=== PATIENT | male | born 1985 | race African-American/Black ===

== ENCOUNTER 2017-09-20 15:14 | Emergency (ER) | payer BC, SELFPAY ==
[2017-09-20 16:12] LABS: #Eosinphils 0.5 thou/uL (0.0-0.7); #Lymphocytes 2.2 thou/uL (1.20-3.40); #Neutrophils 7.9 thou/uL (1.40-6.50); %Basophils 0.3 % (0.0-1.0); %Eosinophils 4.3 % (0.0-10.0); %Monocytes 8.3 % (0.0-10.0); Mean Corpuscular HGB CONC 33.1 g/dL (32.0-36.0); Mean Corpuscular Hemoglobin 28.7 pg (27.0-31.0); Mean Corpuscular Volume 86.5 fl (80.0-94.0); Mean Platelet Volume 9.5 fL (7.4-10.4); Platelet Count 192 thou/uL (130-400); RBC Distribution Width 12.5 % (11.5-14.5); Red Blood Cell (RBC) Count 5.25 mill/uL (4.70-6.10); White Blood Cell (WBC) Count 11.7 thou/uL (4.8-10.8)
[2017-09-20] MEDS ORDERED: Lidocaine 1% w/Epinephrine 1:100K 20 ML VIAL ONE (16:29)
[2017-09-20] MEDS ORDERED: Morphine 4 MG/ML VIAL ONE (16:29)
[2017-09-20] MEDS ORDERED: Ketorolac Tromethamine 30 MG/ML VIAL ONE (16:29)
[2017-09-20] MEDS ORDERED: Clindamycin/D5W 900 mg/50 ml Premix Bag ONE (16:29)
[2017-09-20 16:35] LABS: ALT (SGPT) 48 U/L (8-55); AST (SGOT) 22 U/L (5-34); Albumin 4.4 g/dL (3.5-5.0); Alkaline Phosphatase 91 U/L (40-150); Anion Gap 14 mmol/L (10-20); BUN (Urea Nitrogen) 10 mg/dL (8.9-20.6); Bilirubin, Total 0.7 mg/dL (0.2-1.2); Calc. Creatinine Clearance 0 mL/min (70-130); Calcium 9.7 mg/dL (7.8-10.44); Carbon Dioxide 24 mmol/L (22-29); Chloride 103 mmol/L (98-107); Estimated GFR-MDRD Greater than 90; Globulin 3.7 g/dL (2.4-3.5); Glucose 151 mg/dL (70-105); Potassium 3.7 mmol/L (3.5-5.1); Protein, Total 8.1 g/dL (6.0-8.3); Sodium 137 mmol/L (136-145)
== END 2017-09-20 17:58 | disposition home or self-care (01) ==
LOC: ERS 15:14
DX: L02.411 Cutaneous abscess of right axilla (principal); J45.909 Unspecified asthma, uncomplicated; F17.210 Nicotine dependence, cigarettes, uncomplicated; Z71.6 Tobacco abuse counseling
CPT/HCPCS: 10060; 36415; 80053; 83605; 85025; 87040; 96365; 96375; 99406; J1885; J2001; J2270; J3490

== ENCOUNTER 2018-09-03 16:17 | Emergency (ER) | payer SELFPAY ==
--- NOTE | 2018-09-03 17:44 | RAD ---
XR Chest Pa Lat STANDARD HISTORY: Cough COMPARISON: 06/30/2014 FINDINGS: The heart size is normal. No focal areas of consolidation, pneumothoraces, shayne pulmonary edema or pleural effusions are seen. No acute osseous abnormalities are identified. IMPRESSION: No acute process.
== END 2018-09-03 18:02 | disposition home or self-care (01) ==
LOC: ERS 16:17
DX: R05 Cough (principal); J45.909 Unspecified asthma, uncomplicated; Z87.891 Personal history of nicotine dependence
CPT/HCPCS: 71046; 94640; J7620

== ENCOUNTER 2018-12-09 14:30 | Inpatient (IN) | payer SELFPAY ==
[2018-12-09 15:06] LABS: Base Excess-Venous -2.4 mmol/L (-2.0 to 3.0); CO2 Tension (PvCO2) 36.5 mmHg (40.0-50.0); Calcium, Ionized 1.09 mmol/L (See Comments:); Chloride 106 mmol/L (98-107); Hemoglobin - Calc 16.2 g/dL (14.0-18.0); Potassium 3.7 mmol/L (3.5-5.1); Sodium 136 mmol/L (138-145); T. Carbon Dioxide 23.1 mmol/L (22.0-28.0); vO2 Saturation-calc 88.7 % (60.0-85.0)
[2018-12-09 15:07] LABS: #Eosinphils 0.3 thou/uL (0.0-0.7); #Lymphocytes 2.1 thou/uL (1.20-3.40); #Monocytes 0.6 thou/uL (0.11-0.59); #Neutrophils 3.4 thou/uL (1.40-6.50); %Basophils 0.6 % (0.0-1.0); %Eosinophils 4.9 % (0.0-10.0); %Monocytes 9.1 % (0.0-10.0); %Neutrophils 52.4 % (42.0-75.0); Hemoglobin 14.6 g/dL (14.0-18.0); Mean Corpuscular HGB CONC 33.7 g/dL (32.0-36.0); Mean Corpuscular Hemoglobin 27.9 pg (27.0-31.0); Mean Corpuscular Volume 82.9 fL (78.0-98.0); Mean Platelet Volume 10.8 fL (7.4-10.4); Platelet Count 157 thou/uL (130-400); RBC Distribution Width 11.9 % (11.5-14.5); Red Blood Cell (RBC) Count 5.22 mill/uL (4.70-6.10); White Blood Cell (WBC) Count 6.4 thou/uL (4.8-10.8)
--- NOTE | 2018-12-09 15:12 | RAD ---
PORTABLE CHEST ONE VIEW: 12/09/18 at 2:52 p.m. HISTORY: Altered mental status. FINDINGS: Comparison made with exam of 09/03/18. The heart size is normal. No lobar consolidation, pneumothoraces, shayne pulmonary edema or pleural ef fusions are seen. IMPRESSION: No acute process. POS: [facility]
[2018-12-09] MEDS ORDERED: Lidocaine Viscous Sol 2% 15 ml UD Cup ONE (15:13)
[2018-12-09] MEDS ORDERED: Mag-Al 1200 mg/1200 mg/30 ML UDCUP ONE (15:13)
[2018-12-09 15:20] LABS: ALT (SGPT) 33 U/L (8-55); AST (SGOT) 19 U/L (5-34); Acetaminophen Less than 6.0 mcg/mL (10.0-30.0); Albumin 4.2 g/dL (3.5-5.0); Alcohol Less than 10 mg/dL (Less than 10); Alkaline Phosphatase 135 U/L (40-150); Anion Gap 16 mmol/L (10-20); BUN (Urea Nitrogen) 8 mg/dL (8.9-20.6); Bilirubin, Total 0.4 mg/dL (0.2-1.2); CK (CPK) 257 U/L (30-200); Calc. Creatinine Clearance 0 mL/min (70-130); Calcium 9.5 mg/dL (7.8-10.44); Carbon Dioxide 19 mmol/L (22-29); Chloride 103 mmol/L (98-107); Estimated GFR-MDRD Greater than 90; Globulin 3.2 g/dL (2.4-3.5); Glucose 356 mg/dL (70-105); Lipase 21 U/L (8-78); Potassium 3.7 mmol/L (3.5-5.1); Protein, Total 7.4 g/dL (6.0-8.3); Salicylate Less than 8.0 mg/dL (15.0-30.0); Sodium 134 mmol/L (136-145)
[2018-12-09 15:37] LABS: Bilirubin Negative (Negative); Blood, Urine Negative (Negative); Clarity Clear (Clear); Glucose, Urine (Dipstick) Greater than 1000 mg/dL (Negative); Leukocyte Negative Leu/uL (Negative); Nitrite Negative (Negative); Protein, Urine (Dipstick) 10 mg/dL (Neg-Trace); Urobilinogen Normal mg/dL (Less than 2)
[2018-12-09 15:48] LABS: Amphetamine Not Detected (NotDetected); Barbiturates Screen Not Detected (NotDetected); Benzodiazepine Screen Not Detected (NotDetected); Cocaine Metabolite Screen Not Detected (NotDetected); Medtox Control Line Valid? VALID (VALID); Medtox Reader # READER 1; Methadone Not Detected (NotDetected); Methamphetamine Not Detected (NotDetected); Opiate Screen Not Detected (NotDetected); Oxycodone Screen Not Detected (NotDetected); Phencyclidine (PCP) Not Detected (NotDetected); THC/Cannabinoid Screen Detected (NotDetected); Tricyclic Screen Not Detected (NotDetected)
[2018-12-09 19:31] VITALS: BMI 36.1
[2018-12-09] MEDS ORDERED: HumaLOG 300 UNITS/3 ML VIAL SC PRN ×2 (20:37)
[2018-12-09] MEDS ORDERED: Dextrose 50% Abboject 50 ML SYRINGE SLOW IVP PRN ×2 (20:37→23:22)
[2018-12-09] MEDS ORDERED: Dextrose 5% in Water 1,000 ML IV PRN ×2 (20:37→23:22)
[2018-12-09] MEDS ORDERED: Ondansetron PF 4 MG/2 ML Vial IVP PRN ×2 (20:50→23:22)
[2018-12-09] MEDS ORDERED: Ondansetron ODT 4 MG TAB SL PRN (20:50)
[2018-12-09] MEDS ORDERED: 1/2 NS w/KCL 20 mEq 1,000 ML IV SCH (21:00)
[2018-12-09] MEDS ORDERED: hydrALAZINE 20 MG/ML VIAL SLOW IVP PRN (23:22)
[2018-12-09] MEDS ORDERED: Ondansetron ODT 4 MG TAB PO PRN (23:22)
[2018-12-09] MEDS ORDERED: PROVENTIL INHALER 6.7 G (200 INHALATIONS) INH PRN (23:30)
[2018-12-10] MEDS: Sodium Chloride 0.9% 1,000 ML IV SCH ×3 (01:39→15:05)
--- NOTE | 2018-12-10 04:49 | HP ---
PRIMARY CARE PROVIDER: [place], [place]. CHIEF COMPLAINT: Elevated blood sugar and general malaise. HISTORY OF PRESENT ILLNESS: This is a 33-year-old male, who complains of several month history of increased thirst, frequent urination, 16-pound weight loss, and elevated blood glucose after presenting to his primary clinic in [place], [place]. The patient states that his glucose was measured over 400 and referred to the emergency room for evaluation. The patient states several month history of feeling poorly with decreased energy and frequent urination. The patient also admits some visual disturbance, general body aches, and decreased sensation to feet and lower extremities. The patient also admitted to dry mouth, lower extremity weakness, and a strong family history of diabetes mellitus in both parents. The patient did not take any specific medications to alleviate his symptoms. In the emergency room, the patient's glucose was noted in the 300 to 400 range, receiving intravenous normal saline as well as a GI cocktail. The patient was noted with glucosuria and a beta-hydroxybutyrate level of 1.8. PAST MEDICAL HISTORY: 1. Asthma with intermittent albuterol use. 2. History of tobacco use, quitting in the last several months prior to this evaluation. 3. Marijuana use daily. PAST SURGICAL HISTORY: Status post PICC line placement. CURRENT MEDICATIONS: Reviewed and negative. ALLERGIES: TO PENICILLIN. CURRENT MEDICATIONS: Albuterol sulfate 1 to 2 puffs q.4 hours p.r.n. FAMILY HISTORY: Both parents with diabetes mellitus. SOCIAL HISTORY: The patient is , accompanied by his in the hospital. Former tobacco use, quitting in the last 4 months. Daily use of marijuana. Occasional alcohol use. REVIEW OF SYSTEMS: CONSTITUTIONAL: Negative for weight loss or gain, ability to conduct usual activities. SKIN: Negative for rash, itching. EYES: Negative for double vision, pain. ENT/MOUTH: Negative for nose bleeding, neck stiffness, pain, tenderness. CARDIOVASCULAR: Negative for palpitations, dyspnea on exertion, orthopnea. RESPIRATORY: Negative for shortness of breath, wheezing, cough, hemoptysis, fever or night sweats. GASTROINTESTINAL: Negative for poor appetite, abdominal pain, heartburn, nausea, vomiting, constipation, or diarrhea. GENITOURINARY: Negative for urgency, frequency, dysuria, nocturia. MUSCULOSKELETAL: Negative for pain, swelling. NEUROLOGIC/PSYCHIATRIC: Negative for anxiety, depression. ALLERGY/IMMUNOLOGIC: Negative for skin rash, bleeding tendency. Otherwise negative except as stated per HPI. PHYSICAL EXAMINATION: VITAL SIGNS: On admission, blood pressure 135/102, pulse 69, respiratory rate 14, temperature 98.1 degrees Fahrenheit, O2 saturation 100% on room air. GENERAL APPEARANCE: A 33-year-old male, lethargic, answers questions when directly engaged in mild distress. HEENT: Pupils are equal, round, reactive to light and accommodation. Extraocular muscles are intact. No scleral icterus. Nares patent. OP with dry oral mucosa. NECK: Supple. No cervical adenopathy. No thyromegaly. No carotid bruits. CHEST: Clear to auscultation bilaterally CARDIOVASCULAR: S1, S2 without noted murmur, rub, or gallop. ABDOMEN: Obese, soft, nontender, and nondistended. Bowel sounds are positive in all 4 quadrants. There is no hepatosplenomegaly. No abdominal bruits. No rebound or guarding appreciated. EXTREMITIES: Warm and dry with fair turgor. No clubbing, cyanosis, or asymmetric edema appreciated. Pulses are palpable distally. NEUROLOGIC: Lethargic, but answers questions appropriately when directly engaged. No gross focal deficits other than decreased sensation of lower extremities. PERTINENT LABORATORY AND X-RAY FINDINGS: Sodium 134, potassium 3.7, chloride 103, CO2 of 19, BUN 8, creatinine 0.83, glucose ranged between 305 to 409. Calcium 9.5. LFTs within normal limits. Total CK 257. BNP less than 10. TSH 1.07. CBC within normal limits. Venous blood gas dated 12/09/2018 showed a pH of 7.4. Urinalysis with specific gravity of 1.038, greater than a 1000 glucose and positive ketones. Urine drug screen dated 12/09/2018, positive for cannabinoids. Beta-hydroxybutyrate level 1.80. Plasma alcohol level less than 10. Portable chest x-ray dated 12/09/2018 showed no acute cardiopulmonary process. EKG dated 12/09/2018 by my interpretation shows a sinus mechanism with heart rates in the 70s. Normal R-wave progression noted in the precordial leads. Normal axis. No acute ST-T wave changes appreciated. ASSESSMENT AND PLAN: 1. Diabetes mellitus type 2, new diagnosis. The patient will be admitted to the medical floor. No specific evidence to suggest diabetic ketoacidosis. We will initiate Lantus 15 units subcutaneously b.i.d. Continue volume resuscitation with intravenous normal saline at 150 mL/hr. Consult Dietary Services for diabetic teaching. Case management assistance for medication assist at the time of discharge. Check A1c level in the a.m. ADA diet. Insulin sliding scale for reflexive coverage. 2. Severe dehydration. We will continue IV fluids as outlined in #1. Encourage increased free water intake orally. 3. Elevated blood pressure. We will continue serial blood pressure monitoring. No formal diagnosis of hypertension currently. 4. Marijuana abuse. We will offer supportive management during the hospital course. Cessation resources prior to discharge. 5. Prophylaxis. SCDs while in bed. Pepcid 20 mg p.o. b.i.d. Diabetic education. 6. Code status is full. Surrogate medical decision maker is the patient's spouse. Job ID: [id number]
[2018-12-10 05:29] LABS: ALT (SGPT) 33 U/L (8-55); AST (SGOT) 21 U/L (5-34); Albumin 3.8 g/dL (3.5-5.0); Alkaline Phosphatase 103 U/L (40-150); Anion Gap 15 mmol/L (10-20); BUN (Urea Nitrogen) 11 mg/dL (8.9-20.6); Bilirubin, Total 0.4 mg/dL (0.2-1.2); Calc. Creatinine Clearance 173 mL/min (70-130); Calcium 9.5 mg/dL (7.8-10.44); Carbon Dioxide 19 mmol/L (22-29); Chloride 103 mmol/L (98-107); Estimated GFR-MDRD Greater than 90; Glucose 272 mg/dL (70-105); Potassium 3.6 mmol/L (3.5-5.1); Protein, Total 6.8 g/dL (6.0-8.3); Sodium 133 mmol/L (136-145)
[2018-12-10] MEDS: HumaLOG 300 UNITS/3 ML VIAL SC PRN ×4 (05:48→21:27)
[2018-12-10 06:01] LABS: Hemoglobin A1c 13.8 % (4.0-6.0)
[2018-12-10 06:06] LABS: Eosinophils 5 % (0-10); Hemoglobin 13.7 g/dL (14.0-18.0); Lymphocytes 40 % (21-51); MDiff Complete? YES; Mean Corpuscular Hemoglobin 26.4 pg (27.0-31.0); Mean Corpuscular Volume 85.3 fL (78.0-98.0); Mean Platelet Volume 10.7 fL (7.4-10.4); Monocytes 9 % (0-10); Neutrophil 45 % (42-75); Platelet Count 163 thou/uL (130-400); Platelet Morphology Comment Appears Adequate; RBC Distribution Width 12.2 % (11.5-14.5); Red Blood Cell (RBC) Count 5.18 mill/uL (4.70-6.10); White Blood Cell (WBC) Count 7.9 thou/uL (4.8-10.8)
[2018-12-10] MEDS: Acetaminophen 500 MG TAB PO PRN ×2 (08:54→16:21)
[2018-12-10] MEDS ORDERED: Insulin Glargine 15 UNITS in Pre-Filled Syringe 1 EACH SC SCH ×2 (09:00→21:00)
[2018-12-10] MEDS ORDERED: Famotidine 20 MG TAB PO SCH (09:00)
--- NOTE | 2018-12-10 14:11 | PDOC.PN ---
- Subjective Encounter Start Date: 12/10/18 (f/u new onset DM) Encounter Start Time: 14:09 Subjective: Pt c/o feeling bad this morning - headache, lightheaded, legs numb -: which has resolved. Denies any n/v/abd pain - Objective Resuscitation Status - Order Detail: 12/09/18 23:15 Resuscitation Status Routine Resuscitation Status: FULL: Full Resuscitation Vital Signs & Weight: Vital Signs (12 hours) Temp Pulse Resp BP BP Pulse Ox 12/10/18 12:00 97.9 F 79 18 122/82 98 12/10/18 08:50 96 12/10/18 07:56 98.1 F 73 16 149/90 H 96 12/10/18 04:00 97.9 F 72 20 127/80 99 Weight Weight 231 lb Result Diagrams: 12/10/18 04:48 12/10/18 04:48 Additional Labs: Accuchecks 12/10/18 12/10/18 12/10/18 12:06 08:29 04:43 POC Glucose 397 H 194 H 295 H 12/09/18 12/09/18 12/09/18 19:21 17:16 14:44 POC Glucose 448 H 256 H 327 H Phys Exam - Physical Examination Constitutional: NAD Respiratory: no wheezing, no rales, no rhonchi, clear to auscultation bilateral Cardiovascular: RRR, no significant murmur Gastrointestinal: soft, non-tender, no distention, positive bowel sounds Neurological: non-focal, moves all 4 limbs Psychiatric: normal affect Dx/Plan (1) Diabetes mellitus Code(s): E11.9 - TYPE 2 DIABETES MELLITUS WITHOUT COMPLICATIONS Status: Acute - Plan * Sx this morning correlate with blood sugar of 194 - pt has likely been in the 300 and 400's. * change to NPH as he is unfunded and I anticipate this is more affordable * start metformin * lower IVF rate to 75 ml - continue this as still in the 300's for blood sugar today * * dvt prophy - ambulatory * gi prophy - not indicated - d/c * code status full * * reviewed plan of care with patient and family/friend in the room, no questions or further needs at end of eval.
[2018-12-10] MEDS: metFORMIN 500 MG TAB PO SCH (16:21)
[2018-12-10] MEDS: NPH, Human Insulin Isophane 300 UNIT/3 ML VIAL SC SCH (18:08)
[2018-12-11] MEDS: Sodium Chloride 0.9% 1,000 ML IV SCH ×2 (02:54→16:34)
[2018-12-11 04:47] LABS: Anion Gap 10 mmol/L (10-20); BUN (Urea Nitrogen) 7 mg/dL (8.9-20.6); Calc. Creatinine Clearance 188 mL/min (70-130); Calcium 9.4 mg/dL (7.8-10.44); Carbon Dioxide 25 mmol/L (22-29); Chloride 104 mmol/L (98-107); Estimated GFR-MDRD Greater than 90; Glucose 255 mg/dL (70-105); Potassium 3.5 mmol/L (3.5-5.1); Sodium 135 mmol/L (136-145)
[2018-12-11] MEDS: HumaLOG 300 UNITS/3 ML VIAL SC PRN ×4 (05:22→20:37)
[2018-12-11] MEDS: NPH, Human Insulin Isophane 300 UNIT/3 ML VIAL SC SCH ×2 (07:53→16:35)
[2018-12-11] MEDS: metFORMIN 500 MG TAB PO SCH ×2 (07:53→16:34)
[2018-12-11] MEDS ORDERED: Diabetic Tussin 200 MG/10 ML UDCUP PO PRN (08:39)
[2018-12-11] MEDS ORDERED: Bisacodyl 5 MG TAB PO PRN (08:39)
[2018-12-11] MEDS ORDERED: Sodium Chloride 0.65% Nasal 44 ML BOT EA NARE PRN (08:39)
[2018-12-11] MEDS ORDERED: Zolpidem Tartrate 5 MG TAB PO PRN (08:39)
[2018-12-11] MEDS ORDERED: Loratadine 10 MG TAB PO PRN (08:39)
[2018-12-11] MEDS ORDERED: Cepastat Lozenges 1 LOZ PO PRN (08:39)
[2018-12-11] MEDS ORDERED: Artificial Tears 18 DROP/0.9 ML EA EYE PRN (08:39)
[2018-12-11] MEDS ORDERED: Loperamide HCl 2 MG CAP PO PRN (08:39)
[2018-12-11] MEDS ORDERED: Senokot S 8.6-50 MG TAB PO PRN (08:39)
--- NOTE | 2018-12-11 11:53 | PDOC.PN ---
- Subjective Encounter Start Date: 12/11/18 Encounter Start Time: 08:30 -: old records requested/rev Patient seen and examined. No new complaints. No overnight events - Objective Resuscitation Status - Order Detail: 12/09/18 23:15 Resuscitation Status Routine Resuscitation Status: FULL: Full Resuscitation MAR Reviewed: Yes Vital Signs & Weight: Vital Signs (12 hours) Temp Pulse Resp BP Pulse Ox 12/11/18 08:00 97.6 F 68 18 130/88 99 Weight Weight 231 lb I&O: 12/10/18 12/11/18 12/12/18 06:59 06:59 06:59 Intake Total 3150 Output Total 4100 Balance -950 Result Diagrams: 12/10/18 04:48 12/11/18 04:06 Additional Labs: Accuchecks 12/11/18 12/11/18 12/10/18 11:05 05:23 21:13 POC Glucose 340 H 273 H 267 H 12/10/18 12/10/18 16:07 12:06 POC Glucose 292 H 397 H Phys Exam - Physical Examination Constitutional: NAD HEENT: PERRLA, moist MMs, sclera anicteric Neck: no JVD, supple Respiratory: no wheezing, no rales, no rhonchi Cardiovascular: RRR, no significant murmur, no rub Gastrointestinal: soft, non-tender, no distention, positive bowel sounds Musculoskeletal: no edema, pulses present Neurological: non-focal, normal sensation, moves all 4 limbs Lymphatic: no nodes Psychiatric: normal affect, A&O x 3 Skin: no rash, normal turgor Dx/Plan (1) Cannabis abuse Code(s): F12.10 - CANNABIS ABUSE, UNCOMPLICATED Status: Acute (2) Hyperglycemia Code(s): R73.9 - HYPERGLYCEMIA, UNSPECIFIED Status: Acute (3) New onset type 2 diabetes mellitus Code(s): E11.9 - TYPE 2 DIABETES MELLITUS WITHOUT COMPLICATIONS Status: Acute (4) Obesity (BMI 30-39.9) Code(s): E66.9 - OBESITY, UNSPECIFIED Status: Chronic - Plan cont current plan of care, plan discussed w/ family * increase insulin 20 unit sc bid. * diabetic and dietary education given * medication reviewed as below * symptomatic treatment * expecting discharge tomorrow Review of Systems - Review of Systems ENT: negative: Ear Pain, Ear Discharge, Nose Pain, Nose Discharge, Nose Congestion, Mouth Pain, Mouth Swelling, Throat Pain, Throat Swelling, Other Respiratory: negative: Cough, Dry, Shortness of Breath, Hemoptysis, SOB with Excertion, Pleuritic Pain, Sputum, Wheezing Cardiovascular: negative: chest pain, palpitations, orthopnea, paroxysmal nocturnal dyspnea, edema, light headedness, other Gastrointestinal: negative: Nausea, Vomiting, Abdominal Pain, Diarrhea, Constipation, Melena, Hematochezia, Other Genitourinary: negative: Dysuria, Frequency, Incontinence, Hematuria, Retention , Other Musculoskeletal: negative: Neck Pain, Shoulder Pain, Arm Pain, Back Pain, Hand Pain, Leg Pain, Foot Pain, Other Skin: negative: Rash, Lesions, [place], Bruising, Other - Medications/Allergies Allergies/Adverse Reactions: Allergies Allergy/AdvReac Type Severity Reaction Status Date / Time Penicillins Allergy Verified 12/09/18 19:31 Medications: Current Medications Acetaminophen (Tylenol) 1,000 mg PO Q6H PRN PRN Reason: Mild Pain (1-3) Last Admin: 12/10/18 16:21 Dose: 1,000 mg Albuterol Sulfate (Proventil Hfa) 2 puff INH Q4H PRN PRN Reason: SOB &/or Wheezing Artificial Tears (Tears Naturale) 2 drop EA EYE PRN PRN PRN Reason: Dry Eyes Bisacodyl (Dulcolax) 10 mg PO DAILYPRN PRN PRN Reason: Constipation Dextrose/Water (Dextrose 50%) 25 gm SLOW IVP PRN PRN PRN Reason: Hypoglycemia Glucagon (Glucagon) 1 mg IM PRN PRN PRN Reason: Hypoglycemia Guaifenesin (Robitussin Sf) 200 mg PO Q4H PRN PRN Reason: Cough Hydralazine HCl (Apresoline) 10 mg SLOW IVP Q4H PRN PRN Reason: SBP > 180 and HR < 70 Dextrose/Water (D5w) 1,000 mls @ 0 mls/hr IV .Q0M PRN PRN Reason: Hypoglycemia Sodium Chloride (Normal Saline 0.9%) 1,000 mls @ 75 mls/hr IV .[id number] HANK Last Admin: 12/11/18 02:54 Dose: 1,000 mls Insulin Human Lispro (Humalog) 0 units SC .AGGRESSIVE SLIDING PRN PRN Reason: Aggressive Correctional Scale Last Admin: 12/11/18 05:22 Dose: 9 unit Insulin Human Lispro (Humalog) 0 units SC .BEDTIME SLIDING SC PRN PRN Reason: Bedtime Correctional Scale Last Admin: 12/10/18 21:27 Dose: 3 unit Insulin Human NPH (Humulin N) 20 unit SC BID-[facility] Loperamide HCl (Imodium) 2 mg PO PRN PRN PRN Reason: Diarrhea/Loose Stools Loratadine (Claritin) 10 mg PO DAILYPRN PRN PRN Reason: Sinus Symptoms Metformin HCl (Glucophage) 500 mg PO BID-[facility] Last Admin: 12/11/18 07:53 Dose: 500 mg Ondansetron HCl (Zofran Odt) 4 mg PO Q6H PRN PRN Reason: Nausea/Vomiting Ondansetron HCl (Zofran) 4 mg IVP Q6H PRN PRN Reason: Nausea/Vomiting Senna/Docusate Sodium (Senokot S) 2 tab PO BID PRN PRN Reason: Constipation Sodium Chloride (Castro Nasal Leonard 0.65%) 0 ml EA NARE QIDPRN PRN PRN Reason: Nasal Congestion Sodium Chloride (Flush - Normal Saline) 10 ml IVF Q12HR HANK Sodium Chloride (Flush - Normal Saline) 10 ml IVF PRN PRN PRN Reason: Saline Flush Throat Lozenges (Cepastat Lozenges) 1 [place] PO Q2H PRN PRN Reason: Sore Throat Zolpidem Tartrate (Ambien) 5 mg PO HSPRN PRN PRN Reason: Insomnia
[2018-12-12] MEDS: Sodium Chloride 0.9% 1,000 ML IV SCH (05:42)
[2018-12-12] MEDS: NPH, Human Insulin Isophane 300 UNIT/3 ML VIAL SC SCH (07:46)
[2018-12-12] MEDS: metFORMIN 500 MG TAB PO SCH (07:46)
[2018-12-12] MEDS: HumaLOG 300 UNITS/3 ML VIAL SC PRN (11:07)
--- NOTE | 2018-12-12 11:20 | DIS ---
DATE OF ADMISSION: 12/09/2018 DATE OF DISCHARGE: 12/12/2018 DISCHARGE DISPOSITION: Home. PRIMARY DISCHARGE DIAGNOSES: New onset diabetes type 2, hyperglycemia, dehydration. SECONDARY DISCHARGE DIAGNOSES: 1. Obesity with BMI 36. 2. Marijuana abuse. PRIMARY PROCEDURE/OPERATION: None. RADIOLOGICAL INVESTIGATION: Chest x-ray normal. SIGNIFICANT LABS: Hemoglobin 13.7, creatinine 0.83. Urine drug screen positive for marijuana. Hemoglobin A1c 13.8. DISCHARGE MEDICATION: 1. Proventil 2 puff q.6 hourly p.r.n. 2. Novolin 70/30, 20 units subcu b.i.d. 3. Glucophage 1000 mg p.o. b.i.d. CONTRAINDICATION: None. CODE STATUS: Full code. INPATIENT TECHNICAL ARTIST: None. ALLERGIES: PENICILLIN. DISCHARGE PLAN: Posthospital, the patient will follow up with primary care physician in one week. HOSPITAL COURSE: A 33-year-old male with no significant medical history, who was admitted by Dr. Drake. Please see his H and P for further details. The patient was admitted for new onset diabetes, hyperglycemia, and dehydration secondary to hyperglycemia. This patient was treated with insulin and hydration with IV fluid. He did not have any DKA. We provided diabetes education, dietary education while in hospital, we provided education on how to take insulin. We also provided education about healthy lifestyle while in hospital. We are discharging him with insulin as above and metformin. I have seen and examined the patient at bedside today. The patient examination is completely normal. He is ready to go home today. Plan of care discussed with the patient and his . Job ID: [id number]
[2018-12-12 12:21] VITALS: BP 137/85; TEMP 97.6
--- NOTE | 2018-12-13 16:21 | EKG ---
Test Reason : Blood Pressure : / mmHG Vent. Rate : 076 BPM Atrial Rate : 076 BPM P-R Int : 220 ms QRS Dur : 096 ms QT Int : 410 ms P-R-T Axes : 050 027 018 degrees QTc Int : 461 ms Sinus rhythm with 1st degree A-V block Otherwise normal ECG Confirmed by MALATHI VANN, RYDER ([id number]), graphics editor RAKESH MAGALLON ([id number]) on 12/13/2018 4:21:12 PM Referred By: Confirmed By:RYDER SERVIN MD
== END 2018-12-12 13:50 | disposition home or self-care (01) | DRG 641 ==
LOC: ERS 14:30 → T4-B 19:06
PROVIDERS: ADMIT Internal Medicine; ATTEND Internal Medicine
DX: E86.0 Dehydration (principal); E11.65 Type 2 diabetes mellitus with hyperglycemia; J45.20 Mild intermittent asthma, uncomplicated; F12.10 Cannabis abuse, uncomplicated; E66.9 Obesity, unspecified; Z68.36 Body mass index [BMI] 36.0-36.9, adult; Z88.0 Allergy status to penicillin; Z79.51 Long term (current) use of inhaled steroids; Z87.891 Personal history of nicotine dependence
CPT/HCPCS: 36415; 36416; 71045; 80048; 80053; 80306; 80307; 81003; 82010; 82330; 82550; 82803; 83036; 83690; 83880; 83930; 84443; 84484; 85007; 85025; 85027; 93005; 94760; 96360; J1815; J3480

== ENCOUNTER 2020-11-01 15:22 | Emergency (ER) | payer SELFPAY ==
[2020-11-01 16:46] LABS: Hemoglobin 16.1 g/dL (14.0-18.0); Mean Corpuscular HGB CONC 34.7 g/dL (32.0-36.0); Mean Corpuscular Hemoglobin 29.5 pg (27.0-31.0); Mean Corpuscular Volume 84.9 fL (78.0-98.0); Mean Platelet Volume 12.2 fL (7.4-10.4); Platelet Count 159 thou/uL (130-400); RBC Distribution Width 12.1 % (11.5-14.5); Red Blood Cell (RBC) Count 5.47 mill/uL (4.70-6.10)
[2020-11-01 17:04] LABS: #Basophils 0.1 thou/uL (0.0-0.2); #Eosinphils 0.4 thou/uL (0.0-0.7); #Lymphocytes 2.2 thou/uL (1.20-3.40); #Monocytes 0.6 thou/uL (0.11-0.59); #Neutrophils 4.8 thou/uL (1.40-6.50); %Basophils 1.1 % (0.0-1.0); %Eosinophils 4.9 % (0.0-10.0); %Monocytes 7.1 % (0.0-10.0); %Neutrophils 59.9 % (42.0-75.0); Platelet Morphology Comment Appears Adequate; RBC Morphology Normal
[2020-11-01 17:25] LABS: ALT (SGPT) 33 U/L (8-55); AST (SGOT) 25 U/L (5-34); Albumin 4.3 g/dL (3.5-5.0); Alkaline Phosphatase 145 U/L (40-110); Anion Gap 20 mmol/L (10-20); BUN (Urea Nitrogen) 12 mg/dL (8.9-20.6); Bilirubin, Total 0.3 mg/dL (0.2-1.2); Calc. Creatinine Clearance 0 mL/min (70-130); Calcium 9.9 mg/dL (7.8-10.44); Carbon Dioxide 17 mmol/L (22-29); Chloride 97 mmol/L (98-107); Glucose 664 mg/dL (70-105); Potassium 4.9 mmol/L (3.5-5.1); Protein, Total 8.3 g/dL (6.0-8.3); Sodium 129 mmol/L (136-145)
[2020-11-01 17:42] LABS: Actual Bicarbonate (HCO3v) 24 mEq/L (22-28); Analyzer IN Cardio ER; Base Excess -1.2 mEq/L (-2.0 to +3.0); Calcium, Ionized (venous) 1.17 mmol/L (1.16-1.32); Chloride (VBG) 99 mmol/L (98-106); Hemoglobin (Hb) 15.6 g/dL (13.2-17.3); Potassium (VBG) 4.72 mmol/L (3.70-5.30); Sodium 132.2 mmol/L (133-146); pH (venous) 7.37 (7.32-7.43)
[2020-11-01] MEDS ORDERED: Insulin Regular 300 UNITS/3 ML VIAL ONE (18:03)
[2020-11-01 19:05] LABS: Bilirubin Negative (Negative); Blood, Urine Negative (Negative); Glucose, Urine (Dipstick) >=1000 mg/dL (Negative); Ketone, Urine 15 mg/dL (Negative); Leukocyte Negative (Negative); Nitrite Negative (Negative); Protein, Urine (Dipstick) Negative (Neg-Trace); Urobilinogen 0.2 mg/dL (Less than 2); pH, Urine 5.5 (5.0-9.0)
[2020-11-01 19:06] LABS: Clarity Clear (Clear); Specific Gravity, Urine 1.029 (1.002-1.036)
[2020-11-01 19:07] LABS: Bacteria/HPF None Seen HPF (None Seen); RBC/HPF None Seen HPF (0-3); Squamous Epithelial None Seen HPF (0-3); WBC/HPF 0-3 HPF (0-3)
== END 2020-11-01 19:52 | disposition home or self-care (01) ==
LOC: ERS 15:22
DX: E11.65 Type 2 diabetes mellitus with hyperglycemia (principal); R07.9 Chest pain, unspecified; I10 Essential (primary) hypertension; Z91.14 Patient's other noncompliance with medication regimen; Z79.4 Long term (current) use of insulin; Z79.899 Other long term (current) drug therapy
CPT/HCPCS: 36416; 70450; 80053; 81001; 82010; 82805; 84484; 85025; 96374; J1815

== ENCOUNTER 2021-05-09 08:56 | Emergency (ER) | payer SELFPAY ==
[2021-05-09] MEDS ORDERED: predniSONE 20 MG TAB ONE (09:51)
[2021-05-09 13:10] LABS: SARS-CoV-2 PCR by NAA Not Detected (NotDetected)
== END 2021-05-09 10:50 | disposition home or self-care (01) ==
LOC: ERS 08:56
DX: J45.909 Unspecified asthma, uncomplicated (principal); Z20.822 Contact with and (suspected) exposure to COVID-19; I10 Essential (primary) hypertension; E11.9 Type 2 diabetes mellitus without complications; F17.210 Nicotine dependence, cigarettes, uncomplicated; Z79.4 Long term (current) use of insulin; Z79.84 Long term (current) use of oral hypoglycemic drugs; Z79.899 Other long term (current) drug therapy
CPT/HCPCS: 36416; 71045; J7512; U0003; U0005

== ENCOUNTER 2023-11-28 23:12 | Emergency (ER) | payer OTHER, SELFPAY ==
[2023-11-28 23:32] LABS: #Basophils Less than 0.03 10x3/uL (0.0-0.2); %Basophils 0.2 % (0.0-1.0); %Eosinophils 0.8 % (0.0-10.0); %Lymphocytes 2.7 % (21.0-51.0); %Monocytes 6.5 % (0.0-10.0); %Neutrophils 89.5 % (42.0-75.0); Hemoglobin 15.6 g/dL (14.0-18.0); Mean Corpuscular HGB CONC 33.9 g/dL (32.0-36.0); Mean Corpuscular Hemoglobin 28.6 pg (27.0-31.0); Mean Corpuscular Volume 84.2 fL (78.0-98.0); Mean Platelet Volume 11.5 fL (7.4-10.4); Platelet Count 185 10x3/uL (130-400); Red Blood Cell (RBC) Count 5.46 mill/uL (4.70-6.10)
[2023-11-28 23:42] LABS: ALT (SGPT) 25 U/L (8-55); AST (SGOT) 15 U/L (5-34); Albumin 3.9 g/dL (3.5-5.0); Alkaline Phosphatase 89 U/L (40-110); Anion Gap 17 mmol/L (10-20); BUN (Urea Nitrogen) 10 mg/dL (8.9-20.6); Bilirubin, Total 0.8 mg/dL (0.2-1.2); Calc. Creatinine Clearance 0 mL/min (70-130); Calcium 9.5 mg/dL (7.8-10.44); Carbon Dioxide 18 mmol/L (22-29); Chloride 107 mmol/L (98-107); Estimated GFR 119; Glucose 267 mg/dL (70-105); Lipase 13 U/L (8-78); Potassium 3.9 mmol/L (3.5-5.1); Protein, Total 6.9 g/dL (6.0-8.3); Sodium 138 mmol/L (136-145)
[2023-11-28 23:45] LABS: Bacteria/HPF None Seen HPF (None Seen); Bilirubin Negative (Negative); Blood, Urine Negative (Negative); CAUTI Indications for Culture Pelvic or flank pain; Clarity Clear (Clear); Glucose, Urine (Dipstick) Greater than 1000 mg/dL (Negative); Ketone, Urine 40 mg/dL (Negative); Leukocyte Negative Leu/uL (Negative); Nitrite Negative (Negative); Protein, Urine (Dipstick) 10 mg/dL (Neg-Trace); RBC/HPF 0-3 HPF (0-3); Specific Gravity, Urine 1.041 (1.002-1.036); Squamous Epithelial None Seen HPF (0-3); Urobilinogen Normal mg/dL (Less than 2); WBC/HPF 0-3 HPF (0-3)
[2023-11-28 23:50] LABS: Urine Culture Reflex No No
[2023-11-29] MEDS ORDERED: Dicyclomine 20 MG TAB ONE
[2023-11-29 00:13] LABS: Troponin I Less than 0.010 ng/mL (< 0.028)
== END 2023-11-29 01:08 | disposition home or self-care (01) ==
LOC: ERS 23:12
DX: K52.9 Noninfective gastroenteritis and colitis, unspecified (principal); E11.9 Type 2 diabetes mellitus without complications; I10 Essential (primary) hypertension; F17.210 Nicotine dependence, cigarettes, uncomplicated
CPT/HCPCS: 36416; 80053; 81001; 83605; 83690; 84484; 85025; 93005; 96374; J1790